=== PATIENT | female | born 1985 | race Hispanic/Latino ===

== ENCOUNTER 2017-09-17 13:31 | Emergency (ER) | payer OTHER ==
--- OUTSIDE RECORDS SUMMARY | 2017-09-17 13:33 | XMS REPORT | Clinical Summary ---
:1985 Author Organization [facility] Address [address] [place] [address] Care Team Providers Name Role Phone Familia Olsen MD Primary Care Provider Allergies No Known Allergies Current Medications Prescription Sig. Disp. Refills Start Date End Date Status albuterol (PROAIR Inhale 2 puffs 18 g 2 11/21/2016 Active HFA,PROVENTIL every 6 (six) 8 HFA,VENTOLIN HFA) hours as needed 90 mcg/actuation for shortness inhaler of breath (or cough). benadryl/lidocaine/ Swish and spit 120 mL 0 02/04/2017 Active maalox (MAGIC 5 mL every 6 MOUTHWASH) 1:1:1 (six) hours as suspension needed (sore suspensionIndicatio throat). ns: Sore throat fluconazole 1 tab po q 3 3 tablet 2 11/21/2016 Discontinued (DIFLUCAN) 150 MG days for a 7 tablet total of 3 doses for yeast sulfamethoxazole-tr Take 1 tablet 30 tablet 5 11/21/2016 imethoprim by mouth daily 8 (BACTRIM) 400-80 mg as needed per (post-coital) tabletIndications: for up to 180 Recurrent UTI days. azithromycin Take 2 tablets 6 tablet 0 11/21/2016 (ZITHROMAX) 250 MG the first day, 7 tabletIndications: then 1 tablet Respiratory daily for 4 infection days. montelukast Take 1 tablet 30 tablet 5 11/21/2016 Discontinued (SINGULAIR) 10 mg (10 mg total) 7 tablet by mouth nightly. ciprofloxacin Take 1 tablet 10 tablet 0 11/29/2016 (CIPRO) 500 MG (500 mg total) 7 tablet by mouth 2 (two) times a day for 5 days. ciprofloxacin Take 1 tablet 10 tablet 0 01/01/2017 (CIPRO) 500 MG (500 mg total) 7 tabletIndications: by mouth 2 Dysuria (two) times a day for 5 days. fluconazole 1 tab po q 3 3 tablet 2 01/01/2017 Discontinued (DIFLUCAN) 150 MG days for a 7 tablet total of 3 doses for yeast nitrofurantoin, Take 1 capsule 10 capsule 0 01/06/2017 macrocrystal-monohy (100 mg total) 7 drate, (MACROBID) by mouth 2 100 MG capsule (two) times a day for 5 days. nitrofurantoin, Take 1 capsule 10 capsule 0 02/04/2017 macrocrystal-monohy (100 mg total) 7 drate, (MACROBID) by mouth 2 100 MG (two) times a capsuleIndications: day for 5 days. Recurrent UTI Hospital, Clinic, or Other Ordered Dose Route Frequency Start Date End Date Status Facility Administered Medication cefTRIAXone (ROCEPHIN) 1 g IM once 02/04/2017 02/04/2017 Ended injection 1 gIndications: Sore throat, Recurrent UTI keTOROlac (TORadol) 15 mg IM once 02/04/2017 02/04/2017 Ended injection 15 mgIndications: Sore throat, Recurrent UTI Active Problems Problem Noted Date Dysuria 01/01/2017 Radial styloid tenosynovitis of right hand 01/01/2017 Encounters Date Type Specialty Care Team Description 04/06/2017 Orders Only Internal Medicine Familia Olsen Recurrent UTI ( Primary MD Kirit Dx) 02/13/2017 Telephone Internal Medicine Familia Olsen MD 02/04/2017 Office Visit Family Medicine Parul Villeda Recurrent UTI ( Primary Dx); MD Lizeth Sore throat 01/06/2017 Orders Only Internal Medicine Familia Olsen MD 01/01/2017 Office Visit Internal Medicine Familia Olsen Dysuria (Primary Dx ); MD Kirit Flank pain; Radial styloid tenosynovitis of right hand; Recurrent UTI 11/29/2016 Telephone Internal Medicine Familia Olsen MD 11/21/2016 Office Visit Internal Medicine Familia Olsen Annual physical exam (Primary Dx); MD Kirit Screening for diabetes mellitus; Recurrent UTI; Yeast infection; Respiratory infection; Exercise induced bronchospasm after 09/16/2016 Family History Relation Name Status Comments Father Alive Mother Alive Social History Tobacco Use Types Packs/Day Years Used Date Never Smoker Smokeless Tobacco: Never Used Alcohol Use Drinks/Week oz/Week Comments Yes Occ Sex Assigned at Date Recorded Not on file Last Filed Vital Signs Vital Sign Reading Time Taken Blood Pressure 126/82 02/04/2017 1:49 PM CDT Pulse 83 02/04/2017 1:49 PM CDT Temperature 37.6 C (99.7 F) 02/04/2017 1:49 PM CDT Respiratory Rate 18 02/04/2017 1:49 PM CDT Oxygen Saturation 99% 02/04/2017 1:49 PM CDT Inhaled Oxygen Concentration - - Weight 67.1 kg (148 lb) 02/04/2017 1:49 PM CDT Height 154.9 cm (5' 1") 02/04/2017 1:49 PM CDT Body Mass Index 27.96 02/04/2017 1:49 PM CDT Plan of Treatment Health Maintenance Due Date Last Done Comments CERVICAL CANCER SCREENING 2007 INFLUENZA VACCINE 11/06/2017 Results POC Influenza A/B (02/04/2017 2:04 PM) Component Value Ref Range Rapid Influenza A Ag neg Rapid Influenza B Ag neg Specimen Performing Laboratory Nasopharyngeal Susceptibility panel, aerobic bacterium (02/04/2017 2:02 PM) Component Value Ref Range Susceptibility, aerobic bacterium SEE NOTE Comment: SUSCEPTIBILITY, AEROBIC BACTERIUM MICRO NUMBER:[id number] TEST STATUS: FINAL SPECIMEN SOURCE: URINE SPECIMEN QUALITY:ADEQUATE RESULT:Growth of Staphylococcus epidermidis S.epidermidis INT LEONARDA CIPROFLOXACINR 4 GENTAMICIN S <=0.5 LEVOFLOXACIN R 4 MOXIFLOXACIN I 1 NITROFURANTOIN S <=16 OXACILLINR NR 1 TETRACYCLINE S <=1 TRIMETHOPRIM/SULFA R 160 VANCOMYCIN S 1 S=SusceptibleI=IntermediateR=Resistant*=Not Tested NR=Not ReportedNN=See Therapy Comments THERAPY COMMENTS Note 1: Oxacillin-resistant staphylococci are resistant to all currently available beta-lactam antimicrobial agents including penicillins, beta lactam/beta- lactamase inhibitor combinations, and cephems with staphylococcal indications, including Cefazolin. Specimen Performing Laboratory [facility] TEST AUTHORIZATION (02/04/2017 2:02 PM) Component Value Ref Range TEST(S) ORDERED ON REQUISITION SUSCEPTIBILITY, AEROBIC TEST CODE: [id number] CLIENT CONTACT: FERNANDO ALMONTE REPORT ALWAYS MESSAGE SIGNATURE Comment: The laboratory testing on this patient was verbally requested or confirmed by the ordering physician or his or her authorized farm loan representative after contact with an employee of [employer]. Federal regulations require that we maintain on file written authorization for all laboratory testing.Accordingly we are asking that the ordering physician or his or her authorized farm loan representative sign a copy of this report and promptly return it to the client services assistant. Signature: (Always message) Comment: Please fax this signed form to [phone]. Please do not attempt to return this document by other methods. Documents will not be viewed by a farm loan representative. Please do not use this fax number for other service requests. Specimen Performing Laboratory [facility] Urine culture (02/04/2017 2:02 PM)Only the most recent of2 resultswithin the time period is included. Component Value Ref Range Urine culture SEE NOTE (A) Comment: CULTURE, URINE, ROUTINE MICRO NUMBER:[id number] TEST STATUS: FINAL SPECIMEN SOURCE: NOT GIVEN SPECIMEN QUALITY:ADEQUATE RESULT:50,000-100,000 CFU/mL of Coagulase negative Staphylococcus species May represent colonizers from external and internal genitalia. No further testing (including susceptibility) will be performed. COMMENT: Additional organism(s) less than 10,000 CFU/ mL isolated. These organisms, commonly found on external and internal genitalia, are considered colonizers. No further testing performed. Specimen Performing Laboratory Urine [facility] POC rapid strep A (02/04/2017 2:01 PM) Component Value Ref Range Rapid strep A antigen result Negative Negative Specimen Performing Laboratory Swab [facility]OC urinalysis dipstick (02/04/2017 2:01 PM)Only the most recent of2 resultswithin the time period is included. Component Value Ref Range Color urine, POC Bright Yellow Clarity urine, POC Clear Glucose urine, POC Negative Negative Bilirubin urine, POC Positive (A) Negative Ketones urine, POC 3+ (A) Negative Specific gravity urine, POC 1.010 1.005 - 1.030 Blood urine, POC Trace (A) Negative pH urine, POC 5.0 5.0, 5.5, 6.0, 6.5, 7.0, 7.5, 8.0, 8.5 Protein urine, POC 3+ (A) Negative Urobilinogen urine, POC <2.0 <2.0 Nitrite urine, POC Negative Negative Leukocyte esterase urine, POC Small (A) Negative Specimen Performing Laboratory Urine URINALYSIS, COMPLETE, WITH REFLEX TO CULTURE (11/29/2016 10:31 AM) Component Value Ref Range Color, UA YELLOW YELLOW Appearance CLEAR CLEAR Specific gravity, urine 1.020 1.001 - 1.035 pH, urine 6.0 5.0 - 8.0 Glucose, urine NEGATIVE NEGATIVE Bilirubin, UA NEGATIVE NEGATIVE Ketones, UA NEGATIVE NEGATIVE Occult blood, urine NEGATIVE NEGATIVE Protein, UA 2+ (A) NEGATIVE Nitrite, UA NEGATIVE NEGATIVE Leukocyte esterase, UA NEGATIVE NEGATIVE WBC, UA 0-5 < OR=5 /HPF RBC, UA 0-2 < OR=2 /HPF Squamous epithelial cells, UA 6-10 (A) < OR=5 /HPF Bacteria, UA NONE SEEN NONE SEEN /HPF Hyaline casts, UA NONE SEEN NONE SEEN /LPF Reflex NO CULTURE INDICATED Specimen Performing Laboratory [facility] after 09/16/2016 Insurance Payer Benefit Plan / Group Subscriber ID Type Phone Address BCBS BCBS CHOICE PPO/FEDERAL EMPL PPO xxxxxxxxxxxx PPO
[2017-09-17 14:32] LABS: Urine Blood TRACE (NEG); Urine Glucose NEGATIVE (NEG); Urine Protein 3+ (NEG); Urine Specific Gravity 1.025 (1.005-1.030); Urine pH 5.5 (5.0-7.0)
[2017-09-17 14:35] LABS: Urine Bacteria 20-50 /HPF (<20); Urine RBC <5 /HPF (NONE SEEN)
[2017-09-17 14:36] LABS: Urine Culture Reflex Order REFLEXED
--- NOTE | 2017-09-17 15:29 | EDPHYS ---
Physician Documentation [facility] Name: Meghna Vu Age: 32 yrs Sex: Female : 1985 Arrival Date: 09/17/2017 Time: 13:36 Bed 28 Private MD: None, None ED Physician Donta Lloyd HPI: 09/17 15:27 This 32 yrs old Female presents to ER via Ambulatory with complaints of rn Urinary Problem. 15:27 The patient presents with urinary symptoms, dysuria, frequency. Onset: The rn symptoms/episode began/occurred at an unknown time. Modifying factors: The symptoms are alleviated by nothing, the symptoms are aggravated by sexual intercourse, urinating. Associated signs and symptoms: Pertinent positives: nausea. Severity of symptoms: At their worst the symptoms were mild, in the emergency department the symptoms are unchanged. The patient has experienced similar episodes in the past. 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 - Social history:: Smoking status: Patient/guardian denies using tobacco. - Ebola Screening: : No symptoms or risks identified at this time. - Family history:: not pertinent. - Hospitalizations: : No recent hospitalization is reported. ROS: 15:27 Positive for urinary symptoms, urinary frequency. rn 15:27 Constitutional: Negative for fever, chills, and weight loss, Cardiovascular: Negative for chest pain, palpitations, and edema, Respiratory: Negative for shortness of breath, cough, wheezing, and pleuritic chest pain, Abdomen/GI: Negative for abdominal pain, nausea, vomiting, diarrhea, and constipation, Back: Negative for injury and pain, Neuro: Negative for headache, weakness, numbness, tingling, and seizure. Exam: 15:27 Constitutional: This is a well developed, well nourished patient who is awake, alert, rn and in no acute distress. Abdomen/GI: Soft, non-tender, with normal bowel sounds. No distension or tympany. No guarding or rebound. No evidence of tenderness throughout. Back: No spinal tenderness. No costovertebral tenderness. Full range of motion. Vital Signs: 13:43 BP 117 / 81; Pulse 62; Resp 18; Temp 98.1(O); Pulse Ox 98% ; Weight 68.04 kg; Height 5 sv ft. 2 in. (157.48 cm); Pain 0/10; 13:43 Body Mass Index 27.44 (68.04 kg, 157.48 cm) sv MDM: 14:44 Patient medically screened. rn 15:27 Differential diagnosis: urinary tract infection. Data reviewed: vital signs, nurses rn notes, lab test result(s), and as a result, I will discharge patient. Counseling: I had a detailed discussion with the patient and/or guardian regarding: the historical points, exam findings, and any diagnostic results supporting the discharge/admit diagnosis, lab results, the need for outpatient follow up, to return to the emergency department if symptoms worsen or persist or if there are any questions or concerns that arise at home. Response to treatment: There is no appreciated change of the patient's symptoms at this time. Special discussion: I discussed with the patient/guardian in detail that at this point there is no indication for admission to the hospital. It is understood, however, that if the symptoms persist or worsen the patient needs to return immediately for re-evaluation. 09/17 13:55 Order name: Urine Microscopic Only; Complete Time: 14:46 ag 09/17 13:58 Order name: Urine Dipstick--Ancillary (enter results); Complete Time: 14:46 ag 09/17 13:50 Order name: Urine Dipstick-Ancillary (obtain specimen); Complete Time: 13:50 sv 09/17 13:50 Order name: Urine Test (obtain specimen); Complete Time: 13:50 sv 09/17 13:58 Order name: Urine --Ancillary (enter results); Complete Time: 14:46 ag 09/17 14:37 Order name: Urine Culture EDMS Administered Medications: No medications were administered Disposition: 09/17/17 15:28 Discharged to Home. Impression: Urinary tract infection, site not specified. - Condition is Stable. - Discharge Instructions: Urinary Tract Infection. - Prescriptions for Diflucan 150 mg Oral Tablet - take 1 tablet by ORAL route one time for 1 day; 1 tablet. Zofran 4 mg Oral Tablet - take 1 tablet by ORAL route every 12 hours As needed; 20 tablet. Macrobid 100 mg Oral Capsule - take 1 capsule by ORAL route every 12 hours for 10 days; 20 capsule. - Medication Reconciliation Form, Thank You Letter, Antibiotic Education, Prescription Opioid Use form. - Follow up: Private Physician; When: As needed; Reason: Recheck today's complaints, Re-evaluation by your physician. - Problem is new. - Symptoms have improved. Signatures: Dispatcher [employer] EDMarissa Fu RN RN sv Nieto, Roman, MD MD rn Reaves, Karey, RN RN kr2 Corrections: (The following items were deleted from the chart) 15:38 15:28 09/17/2017 15:28 Discharged to Home. Impression: Urinary tract infection, site kr2 not specified. Condition is Stable. Forms are Medication Reconciliation Form, Thank You Letter, Antibiotic Education, Prescription Opioid Use. Follow up: Private Physician; When: As needed; Reason: Recheck today's complaints, Re-evaluation by your physician. Problem is new. Symptoms have improved. rn
--- NOTE | 2017-09-17 15:29 | ER ---
Nurse's Notes [facility] Name: Megnha Vu Age: 32 yrs Sex: Female : 1985 Arrival Date: 09/17/2017 Time: 13:36 Bed 28 Private MD: None, None Diagnosis: Urinary tract infection, site not specified Presentation: 09/17 13:41 Presenting complaint: Patient states: burning with urination x4-5 days ago. Pt has been sv taking Azo with no relief. c/o nausea. Transition of care: patient was not received from another setting of care. Onset of symptoms was September 2017. Care prior to arrival: None. 13:41 Method Of Arrival: Ambulatory sv 13:41 Acuity: ELLA 4 sv 15:37 Risk Assessment: Do you want to hurt yourself or someone else? Patient reports no kr2 desire to harm self or others. Initial Sepsis Screen: Does the patient meet any 2 criteria? No. Patient's initial sepsis screen is negative. Does the patient have a suspected source of infection? No. Patient's initial sepsis screen is negative. 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 - Social history:: Smoking status: Patient/guardian denies using tobacco. - Ebola Screening: : No symptoms or risks identified at this time. - Family history:: not pertinent. - Hospitalizations: : No recent hospitalization is reported. Screenin:45 Abuse screen: Denies threats or abuse. Denies injuries from another. Nutritional kr2 screening: No deficits noted. Tuberculosis screening: No symptoms or risk factors identified. Fall Risk None identified. Assessment: 14:45 General: Appears in no apparent distress. uncomfortable, well groomed, well developed, kr2 well nourished, Behavior is calm, cooperative, appropriate for age. Pain: Complains of pain in pelvis Pain currently is 6 out of 10 on a pain scale. Quality of pain is described as burning, Pain began suddenly, Is continuous, Alleviated by nothing. Neuro: Level of Consciousness is awake, alert, obeys commands, Oriented to person, place, time, situation. Cardiovascular: Capillary refill < 3 seconds in bilateral fingers Patient's skin is warm and dry. Respiratory: Airway is patent Respiratory effort is even, unlabored, Respiratory pattern is regular, symmetrical. GI: Abdomen is flat, non-distended. : Reports burning with urination, pain in suprapubic area. Derm: Skin is intact, is healthy with good turgor, Skin is pink, warm \T\ dry. Musculoskeletal: Circulation, motion, and sensation intact. Vital Signs: 13:43 BP 117 / 81; Pulse 62; Resp 18; Temp 98.1(O); Pulse Ox 98% ; Weight 68.04 kg; Height 5 sv ft. 2 in. (157.48 cm); Pain 0/10; 13:43 Body Mass Index 27.44 (68.04 kg, 157.48 cm) sv ED Course: 13:36 Patient arrived in ED. mr 13:36 None, None is Private Physician. mr 13:42 Triage completed. sv 13:43 Arm band placed on right wrist. sv 13:50 Urine collected: clean catch specimen. sv 14:44 Donta Lloyd MD is Attending Physician. rn 14:45 Patient has correct armband on for positive identification. Bed in low position. Call kr2 light in reach. Side rails up X 1. Pulse ox on. NIBP on. Door closed. Warm blanket given. Head of bed elevated. 15:34 Farnaz Hay RN is Primary Nurse. kr2 15:36 No provider procedures requiring assistance completed. Patient did not have IV access kr2 during this emergency room visit. Administered Medications: No medications were administered Outcome: 15:28 Discharge ordered by . rn 15:37 Discharged to home ambulatory. kr2 15:37 Condition: good 15:37 Discharge instructions given to patient, Instructed on discharge instructions, follow up and referral plans. medication usage, Demonstrated understanding of instructions, follow-up care, medications, Prescriptions given X 3. 15:38 Patient left the ED. kr2 Addendum: 09/20/2017 07:15 Addendum: Culture Results: Positive urine culture. No further action required. Bacteria s s sensitive to prescribed antibiotic. Signatures: Marissa Arroyo RN RN sv Rivera, Maria mr Donta Lloyd MD MD rn Smirch, Shelby, RN RN Farnaz Hay RN RN kr2 Corrections: (The following items were deleted from the chart) 09/17 15:38 14:45 Door closed. Warm blanket given. Head of bed kr2 kr2
== END 2017-09-17 15:38 | disposition home or self-care (01) ==
LOC: ER 13:31
DX: N39.0 Urinary tract infection, site not specified (principal)
CPT/HCPCS: 81003; 81015; 81025; 87077; 87086; 87088; 87186; 99283

== ENCOUNTER 2018-10-16 09:21 | Emergency (ER) | payer OTHER, SELFPAY ==
--- OUTSIDE RECORDS SUMMARY | 2018-10-16 09:25 | XMS REPORT ---
:1985 [facility] Address [address] [place] [address] [place] [id number] Care Team Providers Name Role Phone Unavailable Unavailable Unavailable Problems This patient has no known problems. Allergies, Adverse Reactions, Alerts This patient has no known allergies or adverse reactions. Medications This patient has no known medications.
--- OUTSIDE RECORDS SUMMARY | 2018-10-16 09:25 | XMS REPORT | Clinical Summary ---
:1985 Author Organization [facility] Address [address] [place] [id number] Care Team Providers Name Role Phone Familia Olsen MD Primary Care Provider Allergies No Known Allergies Medications Medication Sig Dispensed Refills Start Date End Date Status benadryl/lidocaine/ Swish and spit 5 120 mL 0 02/04/2017 Active maalox (MAGIC mL every 6 (six) MOUTHWASH) 1:1:1 hours as needed suspension (sore throat). suspensionIndicatio ns: Sore throat albuterol (PROAIR Inhale 2 puffs 18 g 2 11/21/2016 11/21/2017 HFA,PROVENTIL every 6 (six) HFA,VENTOLIN HFA) hours as needed 90 mcg/actuation for shortness of inhaler breath (or cough). Active Problems Problem Noted Date Dysuria 01/01/2017 Radial styloid tenosynovitis of right hand 01/01/2017 Family History Relation Name Status Comments Father Alive Mother Alive Social History Tobacco Use Types Packs/Day Years Used Date Never Smoker Smokeless Tobacco: Never Used Alcohol Use Drinks/Week oz/Week Comments Yes Occ Sex Assigned at Date Recorded Not on file Job Start Date Occupation Industry Not on file Not on file Not on file Travel History Travel Start Travel End No recent travel history available. Last Filed Vital Signs Not on file Plan of Treatment Health Maintenance Due Date Last Done Comments INFLUENZA VACCINE 11/06/2018 Results Not on fileafter 10/15/2017 Advance Directives Patient has advance care planning documents on file. For more information, please contact:Martin Daniel[address] [place] [address]
[2018-10-16] MEDS ORDERED: dexAMETHasone 10 MG/ML VIAL ONE (10:34)
[2018-10-16] MEDS ORDERED: ALBUTEROL 2.5 MG/3 ML NEB SOL ONE (10:34)
[2018-10-16] MEDS ORDERED: IPRATROPIUM BROM 0.5MG/2.5ML ONE (10:35)
--- NOTE | 2018-10-16 10:48 | RAD REPORT ---
EXAM DESCRIPTION: RAD - Chest Pa And Lat (2 Views) - 10/16/2018 10:41 am CLINICAL HISTORY: cough, shortness of breath Chest pain. COMPARISON: No comparisons FINDINGS: Reticular markings are mildly prominent bilaterally suggesting a mild reactive airway dise ase or bronchitis. The heart is normal in size. No displaced fractures.
--- NOTE | 2018-10-16 11:34 | ER ---
Nurse's Notes [facility] Name: Meghna Vu Age: 33 yrs Sex: Female : 1985 Arrival Date: 10/16/2018 Time: 09:23 Bed 16 Private MD: Diagnosis: Acute bronchitis Presentation: 10/16 09:53 Presenting complaint: Patient states: has had trouble breathing for a few weeks, has hx iw of seasonal allergies/asthma, uses inhaler, has been using inhaler 7-8 times per day, non productive cough, +chest congestion, no fever, also has a sore throat. Transition of care: patient was not received from another setting of care. Onset of symptoms was October 2018. Risk Assessment: Do you want to hurt yourself or someone else? Patient reports no desire to harm self or others. Initial Sepsis Screen: Does the patient meet any 2 criteria? No. Patient's initial sepsis screen is negative. Does the patient have a suspected source of infection? No. Patient's initial sepsis screen is negative. Care prior to arrival: None. 09:53 Method Of Arrival: Ambulatory iw 09:53 Acuity: ELLA 4 iw Triage Assessment: 11:38 Respiratory: the patient has mild shortness of breath. 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 - Social history:: Smoking status: Patient/guardian denies using tobacco. - Ebola Screening: : Patient negative for fever greater than or equal to 101.5 degrees Fahrenheit, and additional compatible Ebola Virus Disease symptoms Patient denies exposure to infectious person Patient denies travel to an Ebola-affected area in the 21 days before illness onset No symptoms or risks identified at this time. Screenin:30 Abuse screen: Denies threats or abuse. Denies injuries from another. Nutritional aj screening: No deficits noted. Tuberculosis screening: No symptoms or risk factors identified. Fall Risk None identified. Assessment: 10:30 General: Appears in no apparent distress. comfortable, Behavior is calm, cooperative, aj appropriate for age. Pain: Denies pain. Cardiovascular: Rhythm is regular. Respiratory: Reports shortness of breath cough that is Airway is patent Respiratory effort is even, unlabored, Respiratory pattern is regular, symmetrical, Breath sounds with wheezes. Derm: Skin is intact, is healthy with good turgor, Skin is pink, warm \T\ dry. normal. 11:37 Reassessment: Patient appears in no apparent distress at this time. No changes from aj previously documented assessment. Patient and/or family updated on plan of care and expected duration. Pain level reassessed. Patient is alert, oriented x 3, equal unlabored respirations, skin warm/dry/pink. Patient states feeling better. Patient states symptoms have improved. Vital Signs: 09:57 BP 118 / 95; Pulse 67; Resp 16; Temp 98.4(O); Pulse Ox 97% on R/A; Weight 66.68 kg; iw Height 5 ft. 2 in. (157.48 cm); 11:15 BP 121 / 82; Pulse 74; Resp 16; Temp 98.0(O); Pulse Ox 100% on R/A; mh5 11:37 BP 126 / 97; Pulse 89; Resp 19; Pulse Ox 99% on R/A; aj 09:57 Body Mass Index 26.89 (66.68 kg, 157.48 cm) iw ED Course: 09:23 Patient arrived in ED. as 09:52 Jo Gold, RN is Primary Nurse. aj 09:55 Triage completed. iw 09:57 Arm band placed on. iw 10:05 Wallace Jaramillo PA is PHCP. jmm 10:05 Faisal Mcfarlane MD is Attending Physician. jmm 10:30 Patient has correct armband on for positive identification. Bed in low position. aj 10:39 X-ray completed. Patient tolerated procedure well. Patient moved back from radiology. sw 10:39 Chest Pa And Lat (2 Views) XRAY In Process Unspecified. EDMS 11:37 No provider procedures requiring assistance completed. Patient did not have IV access aj during this emergency room visit. Administered Medications: 10:25 Drug: Decadron 10 mg Route: IM; Site: left deltoid; aj 11:38 Follow up: Response: No adverse reaction; Marked relief of symptoms aj 10:30 Drug: DuoNeb (3:1) (2.5 mg - 0.5 mg) 3 ml Route: Nebulizer; aj 11:39 Follow up: Response: No adverse reaction; Marked relief of symptoms aj Outcome: 11:34 Discharge ordered by . mann 11:37 Discharged to home ambulatory. aj 11:37 Condition: good 11:37 Discharge instructions given to patient, Instructed on discharge instructions, follow up and referral plans. medication usage, Demonstrated understanding of instructions, follow-up care, medications, Prescriptions given X 2. 11:39 Patient left the ED. aj Signatures: Dispatcher [employer] EDJo Kimball, RN Wallace Lima PA PA jmm Martinez, Amelia as Williams, Irene, RN Betty Duke [facility]
--- NOTE | 2018-10-16 11:35 | EDPHYS ---
Physician Documentation [facility] Name: Meghna Vu Age: 33 yrs Sex: Female : 1985 Arrival Date: 10/16/2018 Time: 09:23 Bed 16 Private MD: ED Physician Faisal Mcfarlane HPI: 10/16 10:12 This 33 yrs old Female presents to ER via Ambulatory with complaints of jmm Wheezing > 1 Year. 10:12 The patient presents to the emergency department with wheezing, Current therapy: jmm albuterol inhaler. Onset: The symptoms/episode began/occurred gradually, 1 month(s) ago. Modifying factors: The symptoms are alleviated by nothing, the symptoms are aggravated by nothing. Associated signs and symptoms: Pertinent positives: sore throat. This is a 33 year old female with a history of asthma that presents to the ED with complaints of cough, wheezing beginning approx 1 month ago. Patient state symptoms worsened last night. Patient states using her rescue inhaler 4 times last night. Patient also complains of sore throat with left sided ear ache. Denies fever or chills. . 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 - Social history:: Smoking status: Patient/guardian denies using tobacco. - Ebola Screening: : Patient negative for fever greater than or equal to 101.5 degrees Fahrenheit, and additional compatible Ebola Virus Disease symptoms Patient denies exposure to infectious person Patient denies travel to an Ebola-affected area in the 21 days before illness onset No symptoms or risks identified at this time. ROS: 10:12 Constitutional: Negative for fever, chills, and weight loss, Cardiovascular: Negative jmm for chest pain, palpitations, and edema. 10:12 Abdomen/GI: Negative for abdominal pain, nausea, vomiting, diarrhea, and constipation. 10:12 ENT: Positive for ear pain, sore throat. 10:12 Respiratory: Positive for cough, wheezing. 10:12 All other systems are negative. Exam: 10:12 Constitutional: This is a well developed, well nourished patient who is awake, alert, jmm and in no acute distress. Head/Face: atraumatic. Eyes: EOMI, no conjunctival erythema appreciated 10:12 Neck: Trachea midline, Supple Chest/axilla: Normal chest wall appearance and motion. 10:12 Abdomen/GI: Non distended, soft Back: Normal ROM Skin: General appearance color normal MS/ Extremity: Moves all extremities, no obvious deformities appreciated, no edema noted to the lower extremities Neuro: Awake and alert, normal gait Psych: Behavior is normal, Mood is normal, Patient is cooperative and pleasant 10:12 ENT: TM's: are normal, Posterior pharynx: is normal. 10:12 Cardiovascular: Rate: normal, Rhythm: regular. 10:12 Respiratory: the patient does not display signs of respiratory distress, Respirations: normal, Breath sounds: wheezing: is heard diffusely. Vital Signs: 09:57 BP 118 / 95; Pulse 67; Resp 16; Temp 98.4(O); Pulse Ox 97% on R/A; Weight 66.68 kg; iw Height 5 ft. 2 in. (157.48 cm); 11:15 BP 121 / 82; Pulse 74; Resp 16; Temp 98.0(O); Pulse Ox 100% on R/A; mh5 11:37 BP 126 / 97; Pulse 89; Resp 19; Pulse Ox 99% on R/A; aj 09:57 Body Mass Index 26.89 (66.68 kg, 157.48 cm) iw MDM: 10:11 Patient medically screened. [facility] 11:33 Data reviewed: vital signs, nurses notes. Counseling: I had a detailed discussion with [facility] the patient and/or guardian regarding: the historical points, exam findings, and any diagnostic results supporting the discharge/admit diagnosis, lab results, radiology results, the need for outpatient follow up, to return to the emergency department if symptoms worsen or persist or if there are any questions or concerns that arise at home. ED course: Decreased wheezing on reauscultation. Patient is alert and non toxic in appearance in the ED. Patient was given strict return precautions. Patient understood and agrees with the plan of care. . 10/16 10:12 Order name: Strep; Complete Time: 10:59 [facility] 10/16 11:09 Order name: Throat Culture [facility] 10/16 10:12 Order name: Chest Pa And Lat (2 Views) XRAY; Complete Time: 10:50 [facility] Administered Medications: 10:25 Drug: Decadron 10 mg Route: IM; Site: left deltoid; aj 11:38 Follow up: Response: No adverse reaction; Marked relief of symptoms aj 10:30 Drug: DuoNeb (3:1) (2.5 mg - 0.5 mg) 3 ml Route: Nebulizer; aj 11:39 Follow up: Response: No adverse reaction; Marked relief of symptoms aj Disposition: 18:59 Co-signature as Attending Physician, Faisal Mcfarlane MD I agree with the assessment and kdr plan of care. Disposition: 10/16/18 11:34 Discharged to Home. Impression: Acute bronchitis. - Condition is Stable. - Discharge Instructions: Acute Bronchitis, Adult. - Prescriptions for Prednisone 20 mg Oral Tablet - take 3 tablet by ORAL route once daily for 5 days; 15 tablet. Albuterol Sulfate 90 mcg/actuation - inhale 1-2 puff by INHALATION route every 4-6 hours; 1 Inhaler. - Medication Reconciliation Form, Thank You Letter, Antibiotic Education, Prescription Opioid Use form. - Follow up: Private Physician; When: 2 - 3 days; Reason: Recheck today's complaints, Continuance of care, Re-evaluation by your physician. Signatures: Dispatcher [employer] [facility] Jo Gold RN RN aj Rittger, Kevin, MD MD kdr Mickail, Joel, PA PA [facility] Lisa Edwards RN RN iw Corrections: (The following items were deleted from the chart) 11:39 11:34 10/16/2018 11:34 Discharged to Home. Impression: Acute bronchitis. Condition is aj Stable. Forms are Medication Reconciliation Form, Thank You Letter, Antibiotic Education, Prescription Opioid Use. Follow up: Private Physician; When: 2 - 3 days; Reason: Recheck today's complaints, Continuance of care, Re-evaluation by your physician. [facility]
== END 2018-10-16 11:39 | disposition home or self-care (01) ==
LOC: ER 09:21
DX: J20.9 Acute bronchitis, unspecified (principal); J30.2 Other seasonal allergic rhinitis
CPT/HCPCS: 71046; 87070; 87081; 94640; 96372; 99284; J1100

== ENCOUNTER 2018-10-24 15:18 | Emergency (ER) | payer SELFPAY ==
--- OUTSIDE RECORDS SUMMARY | 2018-10-24 15:20 | XMS REPORT | Clinical Summary ---
:1985 Author Organization [facility] Address [address] [place] [id number] Care Team Providers Name Role Phone Familia [...] INFLUENZA VACCINE 11/06/2018 Results Not on fileafter 10/23/2017 Advance Directives Patient has advance care planning documents on file. For more information, please contact:Martin Daniel[address] [place] [address]
--- OUTSIDE RECORDS SUMMARY | 2018-10-24 15:20 | XMS REPORT ---
:1985 [facility] Address [address] [place] [address] [place] [id number] Care Team Providers Name Role Phone Unavailable Unavailable Unavailable Problems This patient has no known problems. Allergies, Adverse Reactions, Alerts This patient has no known allergies or adverse reactions. Medications This patient has no known medications.
[2018-10-24 16:44] LABS: Urine Blood NEGATIVE (NEG); Urine Glucose NEGATIVE (NEG); Urine Protein 2+ (NEG); Urine Specific Gravity >1.030 (1.005-1.030)
[2018-10-24 17:33] LABS: Urine Bacteria 20-50 /HPF (<20); Urine Culture Reflex Order REFLEXED; Urine RBC <5 /HPF (NONE SEEN)
--- NOTE | 2018-10-24 17:38 | ER ---
Nurse's Notes [facility] Name: Meghna Vu Age: 33 yrs Sex: Female : 1985 Arrival Date: 10/24/2018 Time: 15:23 Bed 12 Private MD: Diagnosis: Urinary tract infection, site not specified Presentation: 10/24 15:32 Presenting complaint: Patient states: "I've been feeling a lot of bladder pain this aj1 week and we are both really prone to UTIs" Patient reports dysuria. Transition of care: patient was not received from another setting of care. Onset of symptoms was October 22, 2018. Risk Assessment: Do you want to hurt yourself or someone else? Patient reports no desire to harm self or others. Initial Sepsis Screen: Does the patient meet any 2 criteria? No. Patient's initial sepsis screen is negative. Does the patient have a suspected source of infection? No. Patient's initial sepsis screen is negative. Care prior to arrival: None. 15:32 Method Of Arrival: Ambulatory aj 15:32 Acuity: ELLA 4 aj1 Triage Assessment: 15:33 General: Appears in no apparent distress. comfortable, Behavior is calm, cooperative, aj1 appropriate for age. Pain: Pain currently is 5 out of 10 on a pain scale. Neuro: Level of Consciousness is awake, alert, obeys commands. Cardiovascular: Patient's skin is warm and dry. Respiratory: Airway is patent Respiratory effort is even, unlabored, Respiratory pattern is regular, symmetrical. : Reports burning with urination. 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 - Social history:: Smoking status: Patient/guardian denies using tobacco. - Ebola Screening: : Patient denies travel to an Ebola-affected area in the 21 days before illness onset. Screenin:15 Abuse screen: Denies threats or abuse. Nutritional screening: No deficits noted. aa5 Tuberculosis screening: No symptoms or risk factors identified. Fall Risk None identified. Assessment: 16:15 General: Appears comfortable, Behavior is calm, cooperative. Pain: Complains of pain in aa5 suprapubic area Pain currently is 5 out of 10 on a pain scale. Neuro: Level of Consciousness is awake, alert, obeys commands, Oriented to person, place, time, situation. Cardiovascular: Patient's skin is warm and dry. Respiratory: Airway is patent Respiratory effort is even, unlabored, Respiratory pattern is regular, symmetrical. GI: No signs and/or symptoms were reported involving the gastrointestinal system. : Reports pain in suprapubic area. EENT: No signs and/or symptoms were reported regarding the EENT system. Derm: Skin is pink, warm \\T\\ dry. Musculoskeletal: Range of motion: intact in all extremities. 16:40 Reassessment: Patient is alert, oriented x 3, equal unlabored respirations, skin aa5 warm/dry/pink. Awaiting urine micro results, pt notified of wait time . 17:50 Reassessment: Patient is alert, oriented x 3, equal unlabored respirations, skin aa5 warm/dry/pink. Vital Signs: 15:33 BP 114 / 74; Pulse 70; Resp 18; Temp 98.1; Pulse Ox 98% on R/A; Weight 65.77 kg (R); aj1 Height 5 ft. 1 in. (154.94 cm) (R); Pain 5/10; 15:33 Body Mass Index 27.40 (65.77 kg, 154.94 cm) aj1 ED Course: 15:23 Patient arrived in ED. rg4 15:31 Rachana Coello FNP-C is [facility]. kb 15:31 Eric Huertas MD is Attending Physician. kb 15:33 Triage completed. aj1 15:33 Arm band placed on Patient placed in waiting room. aj1 16:15 Patient has correct armband on for positive identification. aa5 16:18 Mya Cortés, RN is Primary Nurse. aa5 16:48 No provider procedures requiring assistance completed. aa5 17:50 Patient did not have IV access during this emergency room visit. aa5 Administered Medications: 17:51 Drug: Macrobid 100 mg Route: PO; aa5 Outcome: 17:37 Discharge ordered by . kb 17:50 Discharged to home ambulatory. aa5 17:50 Condition: stable 17:50 Discharge instructions given to patient, Instructed on discharge instructions, follow up and referral plans. medication usage, Demonstrated understanding of instructions, follow-up care, medications, Prescriptions given X 2. 17:51 Patient left the ED. aa5 Signatures: Rachana Coello, SUPERVISOR DEHYDROGENATION-C SUPERVISOR DEHYDROGENATION-Aaliyah Mendez, RN RN aj1 Mya Cortés RN RN aa5 Janice Segundo4
--- NOTE | 2018-10-24 17:38 | EDPHYS ---
Physician Documentation [facility] Name: Meghna Vu Age: 33 yrs Sex: Female : 1985 Arrival Date: 10/24/2018 Time: 15:23 Bed 12 Private MD: ED Physician Eric Huertas HPI: 10/24 17:00 This 33 yrs old Female presents to ER via Ambulatory with complaints of kb Urinary Problem. 17:00 The patient presents with urinary symptoms, dysuria, frequency. Onset: The kb symptoms/episode began/occurred 4 day(s) ago. Modifying factors: The symptoms are alleviated by nothing, the symptoms are aggravated by urinating. Associated signs and symptoms: Pertinent positives: dysuria, urinary frequency. Severity of symptoms: At their worst the symptoms were moderate, in the emergency department the symptoms are unchanged. The patient has experienced similar episodes in the past. The patient has not recently seen a physician. Pt reports history of UTIs. States she started feeling one come on with dysuria, frequency and bladder spasms 4 days ago. Has been treating with AZO, but it hasn't helped. . 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 - Social history:: Smoking status: Patient/guardian denies using tobacco. - Ebola Screening: : Patient denies travel to an Ebola-affected area in the 21 days before illness onset. ROS: 16:58 Constitutional: Negative for fever, chills, and weight loss, ENT: Negative for injury, kb pain, and discharge, Neck: Negative for injury, pain, and swelling, Cardiovascular: Negative for chest pain, palpitations, and edema, Respiratory: Negative for shortness of breath, cough, wheezing, and pleuritic chest pain, Abdomen/GI: Negative for abdominal pain, nausea, vomiting, diarrhea, and constipation, Back: Negative for injury and pain, MS/Extremity: Negative for injury and deformity, Skin: Negative for injury, rash, and discoloration, Neuro: Negative for headache, weakness, numbness, tingling, and seizure. 16:58 : Positive for urinary symptoms, urinary frequency, burning with urination, bladder spasms. Exam: 16:58 Constitutional: This is a well developed, well nourished patient who is awake, alert, kb and in no acute distress. Head/Face: Normocephalic, atraumatic. Chest/axilla: Normal chest wall appearance and motion. Nontender with no deformity. No lesions are appreciated. Cardiovascular: Regular rate and rhythm with a normal S1 and S2. No gallops, murmurs, or rubs. Normal PMI, no JVD. No pulse deficits. Respiratory: Lungs have equal breath sounds bilaterally, clear to auscultation and percussion. No rales, rhonchi or wheezes noted. No increased work of breathing, no retractions or nasal flaring. Abdomen/GI: Soft, non-tender, with normal bowel sounds. No distension or tympany. No guarding or rebound. No evidence of tenderness throughout. Back: No spinal tenderness. No costovertebral tenderness. Full range of motion. Skin: Warm, dry with normal turgor. Normal color with no rashes, no lesions, and no evidence of cellulitis. MS/ Extremity: Pulses equal, no cyanosis. Neurovascular intact. Full, normal range of motion. Neuro: Awake and alert, GCS 15, oriented to person, place, time, and situation. Cranial nerves II-XII grossly intact. Motor strength 5/5 in all extremities. Sensory grossly intact. Cerebellar exam normal. Normal gait. Vital Signs: 15:33 BP 114 / 74; Pulse 70; Resp 18; Temp 98.1; Pulse Ox 98% on R/A; Weight 65.77 kg (R); aj1 Height 5 ft. 1 in. (154.94 cm) (R); Pain 5/10; 15:33 Body Mass Index 27.40 (65.77 kg, 154.94 cm) aj1 MDM: 16:08 Patient medically screened. kb 16:58 Data reviewed: vital signs, nurses notes. Data interpreted: Pulse oximetry: on room air kb is 98 %. Interpretation: normal. Counseling: I had a detailed discussion with the patient and/or guardian regarding: the historical points, exam findings, and any diagnostic results supporting the discharge/admit diagnosis, lab results, the need for outpatient follow up, a family practitioner, to return to the emergency department if symptoms worsen or persist or if there are any questions or concerns that arise at home. 10/24 15:33 Order name: Urine Microscopic Only; Complete Time: 17:35 kb 10/24 16:37 Order name: Urine Dipstick--Ancillary (enter results); Complete Time: 16:45 em1 10/24 15:33 Order name: Urine Test (obtain specimen); Complete Time: 16:30 kb 10/24 16:37 Order name: Urine --Ancillary (enter results); Complete Time: 16:45 em1 10/24 17:35 Order name: Urine Culture EDID 10/24 15:33 Order name: Urine Dipstick-Ancillary (obtain specimen); Complete Time: 16:30 kb Administered Medications: 17:51 Drug: Macrobid 100 mg Route: PO; aa5 Disposition: 10/24/18 17:37 Discharged to Home. Impression: Urinary tract infection, site not specified. - Condition is Stable. - Discharge Instructions: Urinary Tract Infection, Adult, [id number]. - Prescriptions for Pyridium 200 mg Oral Tablet - take 1 tablet by ORAL route every 8 hours for 3 days; 9 tablet. Macrobid 100 mg Oral Capsule - take 1 capsule by ORAL route every 12 hours for 5 days; 10 capsule. - Medication Reconciliation Form, Thank You Letter, Antibiotic Education, Prescription Opioid Use form. - Follow up: Emergency Department; When: As needed; Reason: Worsening of condition. Follow up: Private Physician; When: 2 - 3 days; Reason: Recheck today's complaints, Continuance of care, Re-evaluation by your physician. Addendum: 10/25/2018 18:30 Co-signature as Attending Physician, Eric Huertas MD. g s Signatures: Dispatcher [employer] Rachana Alaniz, JELANI TAX INTERN-Aaliyah Mendez RN RN aj1 Mya Cortés RN RN aa5 Eric Huertas MD MD Corrections: (The following items were deleted from the chart) 10/24 17:51 17:37 10/24/2018 17:37 Discharged to Home. Impression: Urinary tract infection, site aa5 not specified. Condition is Stable. Forms are Medication Reconciliation Form, Thank You Letter, Antibiotic Education, Prescription Opioid Use. Follow up: Emergency Department; When: As needed; Reason: Worsening of condition. Follow up: Private Physician; When: 2 - 3 days; Reason: Recheck today's complaints, Continuance of care, Re-evaluation by your physician. kb
[2018-10-24] MEDS ORDERED: NITROFURAN MACRO 100 MG CAP PO ONE (18:04)
== END 2018-10-24 17:51 | disposition home or self-care (01) ==
LOC: ER 15:18
DX: N39.0 Urinary tract infection, site not specified (principal)
CPT/HCPCS: 81003; 81015; 81025; 87086; 87088; 99283